=== PATIENT | male | born 1945 | race Caucasian/White ===

== ENCOUNTER 2016-12-29 16:32 | Observation (INO) | payer MEDICARE, MEDICAID ==
[2016-12-29] MEDS ORDERED: Sodium Chloride 0.9% 10 ML Syringe FLUSH PRN (17:36)
[2016-12-29] MEDS ORDERED: Sodium Chloride 0.9% 1,000 ML IV ONE (17:37)
[2016-12-29] MEDS ORDERED: Aluminum Hydroxide/Magnesium Hydroxide/Simethicone Susp 30 ML Cup PO PRN (17:40)
[2016-12-29] MEDS ORDERED: Nitroglycerin 0.4 MG Tab.SL SL PRN (17:40)
[2016-12-29] MEDS ORDERED: Acetaminophen 325 MG Tab PO PRN (17:40)
[2016-12-29] MEDS ORDERED: Bisacodyl 5 MG Tab PO PRN (17:40)
[2016-12-29] MEDS ORDERED: Sodium Chloride 0.9% 1,000 ML IV SCH (17:45)
[2016-12-29] MEDS ORDERED: Iopamidol 612 MG/ML 100 ML Bottle IVPUSH ONE (18:10)
[2016-12-29] MEDS ORDERED: Sodium Chloride 0.9% 100 ML IV SCH (18:15)
[2016-12-29] MEDS: Sodium Chloride 0.9% 1,000 ML IV SCH (19:10)
[2016-12-29] MEDS ORDERED: Divalproex Sodium 500 MG Tab.ER PO SCH (20:00)
[2016-12-29] MEDS ORDERED: Loperamide 2 MG Cap PO PRN (20:00)
[2016-12-29] MEDS ORDERED: Mirtazapine 30 MG Tab PO SCH (20:00)
[2016-12-29] MEDS ORDERED: traZODone 50 MG Tab PO SCH (20:00)
[2016-12-29] MEDS: Acetaminophen 325 MG Tab PO SCH (21:37)
[2016-12-29] MEDS: buPROPion 100 MG Tab.SR PO SCH (21:38)
[2016-12-29] MEDS: Divalproex Sodium Delayed-Release 250 MG Tab.CR PO SCH (21:38)
[2016-12-29] MEDS: Magnesium Oxide 400 MG Tab PO SCH (21:39)
[2016-12-29] MEDS: Albuterol/Ipratropium 3.0-0.5 MG/3 ML Neb Soln NEB SCH (23:19)
--- NOTE | 2016-12-30 01:15 | HP ---
CHIEF COMPLAINT: Shortness of breath, wheezing, and nonproductive cough. HISTORY OF PRESENT ILLNESS: This is a 71-year-old male with increasing weakness over the last several days, but last night he was more short of breath. O2 saturations were down to 85%, so he was placed on oxygen. They called his today and scheduled a clinic visit. He has had more pain, he points to the mid sternal area. has noticed that over the past few days when she touches his chest, it is also tender. His recent history is significant for his aspirin being replaced with amitriptyline from 12/14 through the 12/25. He does have a history of coronary artery disease. He has no history of ulcers or GI bleeding. He did have 2 dark stools today, no diarrhea. Otherwise, he has had no fever or chills. His cough is nonproductive. He has just had a lot of lethargy. PAST MEDICAL HISTORY: The patient has a past medical history of smoking, but he quit several years ago. Hyperlipidemia, peripheral vascular disease status post BKA of the right leg, essential hypertension, demand ischemia, admission in 2013. Patient and family refused further workup. Coronary artery disease with CA in 1984 and stenosis of the mid circumflex and 80% occlusion of the right RCA with no interventions. Conduct disorder followed by Psych. Seizure disorder likely due to a CVA by history. Anemia, mild, chronic, likely due to chronic disease. History of stroke with aphasia and behavioral issues since. 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 Non-pressure ulcer of the right lower extremity, healed. Contracture of the left lower leg. The patient requires a Benjamin lift. ALLERGIES: None. MEDICATIONS: List is reviewed and updated in [facility]. Most notably, for blood pressure pills, he is on Lopressor 12.5 mg b.i.d. He is on Risperdal and mirtazapine for moods and trazodone for sleep. Otherwise, multiple other medications are reviewed. SOCIAL HISTORY: The patient is . He lives at [facility] as his is unable to take care of him at home. FAMILY HISTORY: Not known. No family history was obtained from the patient. REVIEW OF SYSTEMS: General: There has been no report of major weight changes. Otherwise, all systems reviewed with family and caregiver. The patient will answer yes or no, but otherwise unable to answer questions appropriately at all times, otherwise, as stated in the HPI. PHYSICAL EXAMINATION: Vital Signs: In the clinic, blood pressure 84/33 and he was 88% on room air. The patient was transferred over to the hospital and his initial blood pressure there was 79/19, his weight was 61.2 kg, temp 97.3, pulse 67, respiratory rate 20, O2 was 100 on 2 L. General: He did not appear to be in acute distress, but he appeared pale. His skin was flushed. He was smiling and participating with the exam. His was present in the room as well and he communicated with her. Heart: Regular rate and rhythm. S1, S2 without murmur. Lungs: Sounds are clear to auscultation bilaterally without crackles or wheezes, but I could hear some audible wheezing from the upper airways when we were just conversing with him. Abdomen: Positive bowel sounds. It is soft. There is some midepigastric tenderness. Extremities: Warm and dry. He does have a right BKA, but there is no other leg edema on the left. Mental Status: He is alert, he is orientated that he can recognize his , but we did not ask about location or date. LABORATORY DATA: Otherwise, lab work performed in the clinic showed him to have a normal white count of 6.2, hemoglobin 14.2, platelets 164, glucose 110, BUN 19, creatinine 0.83, sodium 143, potassium 4.4, chloride 105, bicarb 29, calcium 9.3, albumin normal. ALT and AST normal. Lipase was normal. TSH was just done in the clinic on the and was normal at 4.26. Otherwise, chest x-ray was done, which did not show any infiltrates. ASSESSMENT: 1. Acute hypotension, could be a type of shock like obstructive shock. Given his respiratory symptoms as well with normal chest x-ray, we are going to proceed with a CT PE protocol. 2. Cough, wheezing, history of smoking, probably bronchitis versus COPD with exacerbation. The patient has no known history of COPD, but I am going to go ahead and schedule him on some DuoNeb 3 times a day and see if this helps his symptoms. 3. Fatigue and lethargy. This is almost certainly related to the medication administration of amitriptyline over 11 days, just stopped 4 days ago inadvertently. This certainly is probably what made him more tired and could even be contributing to some of his symptoms today. At this point, the medicine has already been stopped. We will go ahead and monitor him with telemetry. 4. Dark stools without anemia. He could just be mildly dehydrated. We will continue to monitor for further dark stools. We will repeat a CBC tomorrow, but a hemoglobin later. If there is any further issues with concern for melena, we will also do stool for Hemoccult. 5. History of coronary artery disease. He had a negative troponin. He and his have not wanted further aggressive workup. He would not want to be transferred to [facility]. We will repeat a troponin in the morning, but I do not see any reason to repeat it tonight. He is not having any active chest pain. We will also get an EKG. 6. Conduct disorder. Behavior seemed to be okay. We will continue his home medications. 7. History of essential hypertension. Blood pressures are low, so I am going to go ahead and hold his metoprolol. PLAN: The patient is admitted for observation. We will do a CT PE protocol. We will get an EKG. He has already received a liter of IV fluids. We will continue him on normal saline. We will repeat lab work in the morning. We will monitor for GI bleeding. Hopefully things stabilize and he can be discharged back to [facility] tomorrow. If we find an acute problem, we will treat it like a pulmonary embolism and we would likely upgrade him to acute care. He is a code level 3. I am going to hold off on DVT prophylaxis due to concern for possible GI bleeding. EILEENA: 12/29/2016 17:52:23 MODL: 12/30/2016 01:06:14 /[id number]
[2016-12-30] MEDS: Sodium Chloride 0.9% 1,000 ML IV SCH (01:34)
[2016-12-30 06:54] LABS: CHLORIDE,CL 108 mmol/L (98-107); SODIUM,NA 145 mmol/L (136-145)
[2016-12-30] MEDS: Albuterol/Ipratropium 3.0-0.5 MG/3 ML Neb Soln NEB SCH (07:21)
[2016-12-30] MEDS ORDERED: Non-Formulary Medication 1 Each (Magnesium Oxide [Magnesium Oxide] 500 MG) PO SCH (08:00)
[2016-12-30] MEDS ORDERED: Sertraline 100 MG Tab PO SCH (08:00)
[2016-12-30] MEDS ORDERED: Loratadine 10 MG Tab PO SCH (08:00)
[2016-12-30] MEDS ORDERED: risperiDONE 1 MG Tab PO SCH (08:00)
[2016-12-30] MEDS ORDERED: Docusate Sodium 100 MG Cap PO SCH (08:00)
[2016-12-30] MEDS ORDERED: Potassium Chloride 20 MEQ Tab.ER PO ONE (08:08)
[2016-12-30] MEDS ORDERED: predniSONE 20 MG Tab PO SCH (08:42)
[2016-12-30] MEDS ORDERED: Doxycycline 100 MG Cap PO SCH (08:45)
[2016-12-30] MEDS: Magnesium Oxide 400 MG Tab PO SCH (09:09)
[2016-12-30] MEDS: Divalproex Sodium Delayed-Release 250 MG Tab.CR PO SCH (09:10)
[2016-12-30] MEDS: Acetaminophen 325 MG Tab PO SCH (09:11)
[2016-12-30] MEDS ORDERED: buPROPion 100 MG Tab.SR PO SCH (09:15)
[2016-12-30] MEDS: buPROPion 100 MG Tab.SR PO SCH (09:16)
[2016-12-30 11:24] VITALS: BP 88/64
--- NOTE | 2016-12-31 08:06 | DISCH ---
PRIMARY DISCHARGE DIAGNOSES: 1. Fatigue and lethargy with recent inadvertent administration of amitriptyline 25 mg daily for 10 to 11 days. 2. Acute hypotension with significant blood pressure difference between the right and left arms, probably due to peripheral vascular disease. Blood pressures improved with IV fluids. Ruled out for obstructive shock with negative CT/PE protocol. 3. Cough, wheezing, and history of smoking with acute bronchitis, likely from underlying chronic obstructive pulmonary disease with exacerbation, improved with nebs, prednisone, and doxycycline. 4. Dark stools reported, but no further stools on admission to test for blood. Hemoglobin did drop from 14 to 12.3, but that was likely due to hemodilution. He does have a history of chronic anemia. 5. History of coronary artery disease without chest pain. Troponins were negative. He did have some midepigastric pain, but it resolved prior to discharge. 6. Conduct disorder by history with dementia with behavioral disturbance. 7. Remote history of stroke. 8. Essential hypertension. Metoprolol held due to lower blood pressures. 9. Episodes of artifact on telemetry, narrow-base tachycardia, no wide-based PVCs noted. Usually, he was having more tremors when this occurred. EKG did not catch any SVT or atrial fibrillation, so no further medications were started for that. 10.Peripheral vascular disease with previous below-knee amputation. 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 12.Contracture of the left leg requiring Benjamin lift. 13.Hyperlipidemia. 14.History of smoking. REASON FOR ADMISSION: On the date of admission, this 71-year-old was brought to the clinic with increasing weakness and lethargy. He also had hypoxia and shortness of breath, which developed on the previous evening. His could hear him wheezing. In the clinic, he was evaluated with lab work, which all looked okay. His lipase was also normal. His chest x-ray did not show any infiltrates. He was hypoxic at 88% on room air. He underwent a CT/PE protocol, which failed to reveal any pneumonias or pulmonary embolism. He was treated empirically with nebs 3 times a day, prednisone and doxycycline for COPD exacerbation. He received 2 L of IV fluids. Overall, his blood pressures improved. He was always awake and alert despite lower blood pressure readings, but he was quite sleepy over the last couple of weeks as he had inadvertently received some amitriptyline at the [facility]. This might have led to poor oral intake, which led to some of the hypotension, but luckily he was not in any renal failure and creatinine was normal at 0.8 on discharge. Otherwise, he had no fevers, he had a normal white count, and normal troponin x2. DISCHARGE PLANS/INSTRUCTIONS: He is going back up to [facility]. He will be on DuoNeb 3 times a day to continue. We can change them to p.r.n. after he resolves. He will be on doxycycline 100 mg twice daily for another 6 days and prednisone 40 mg for another 4 days. I will see him on custodial rounds in December. No lab work will be due. Aspirin will also be restarted on discharge. We did hold his dose on admission in case he were to have GI bleeding. No DVT prophylaxis was given. His stay was under 24 hours. DISCHARGE PHYSICAL EXAMINATION: Vital Signs: Temperature 98.7, pulse 91, blood pressure 88/64 on the right and 124/82 on the left, respiratory rate 20, O2 of 95% on room air on discharge. General: He is in no acute distress. Heart: Regular rate and rhythm. S1, S2 without murmur. Lungs: Sounds are clear to auscultation bilaterally without crackles or wheezes, but he did have some wheezes on exam earlier. Abdomen: Positive bowel sounds. Soft and nontender. Extremities: Warm and dry. No edema. Left leg contracture is noted. Right BKA is examined. There are no wounds. Mental Status: He is alert. He answers yes or no to questions, but it is not always clear if he answers questions appropriately. He was slightly resistive with cares this morning. Otherwise, he had no significant behaviors during his stay. MKA: 12/30/2016 12:51:04 MODL: 12/31/2016 07:59:32 /[id number]
== END 2016-12-30 14:50 ==
LOC: VM.MS 16:32
PROVIDERS: ADMIT Internal Medicine; ATTEND Internal Medicine
DX: R53.1 Weakness (principal); R53.83 Other fatigue; I95.9 Hypotension, unspecified; R05 Cough; R06.2 Wheezing; J20.9 Acute bronchitis, unspecified; I10 Essential (primary) hypertension; I73.9 Peripheral vascular disease, unspecified; F33.9 Major depressive disorder, recurrent, unspecified; E78.5 Hyperlipidemia, unspecified; Z79.899 Other long term (current) drug therapy
CPT/HCPCS: 36415; 71275; 80048; 82962; 83735; 84484; 85025; 93005; 94640; 94760; A9270; J7030; J7040; J7050; Q9967; 96360; 96361; G0378; G0379

== ENCOUNTER 2017-01-01 13:16 | Emergency (ER) | payer MEDICARE, MEDICAID ==
--- NOTE | 2017-01-01 13:38 | EDM.PDOC ---
ED HPI GENERAL MEDICAL PROBLEM - General Chief Complaint: Respiratory Problem Stated Complaint: Advised by Dr Dang patient was coming to ER from residential for evaluation. [facility] report respiratory issues and low oxygen saturation levels Time Seen by Provider: 01/01/17 13:20 Source of Information: Reports: EMS Notes Reviewed, Family, Penitentiary Records , Provider History Limitations: Reports: Language Barrier, Other (Patient has had a stroke and is unable to communicate in a verbally meaningful way according to his . assisted with answering review of systems questions with what she has observed with her today.) - History of Present Illness INITIAL COMMENTS - FREE TEXT/NARRATIVE: Patient was just discharge from hospital on Monday after a brief hospitalization. He was started on antibiotics and nebs according to . penitentiary reported he was hypoxic and in respiratory distress so ambulance called to pick him up. EMS staff report he was alert, in no distress and )2 sat was 97% on 4 liters of oxygen. He was hypotensive with systolic of 80s so they started an IV with a fluid bolus and brought him to ER> Onset: Sudden Onset Date: 01/01/17 Duration: Hour(s): Location: Reports: Chest Improves with: Reports: None Worsens with: Reports: None Associated Symptoms: Reports: No Other Symptoms - Related Data Allergies Allergy/AdvReac Type Severity Reaction Status Date / Time No Known Drug Allergies Allergy Other Verified 01/01/17 13:38 Home Meds: Home Meds Acetaminophen [Tylenol] 650 mg PO BID 03/02/14 [History] Acetaminophen [Tylenol] 650 mg PO Q4HR PRN 03/02/14 [History] Aspirin [Halfprin] 81 mg PO DAILY 03/02/14 [History] Bisacodyl [Dulcolax] 5 mg PO DAILY PRN 03/02/14 [History] Loratadine [Claritin] 10 mg PO DAILY 03/02/14 [History] Mirtazapine [Remeron] 30 mg PO BEDTIME 03/02/14 [History] Nitroglycerin [Nitrostat] 0.4 mg SL ASDIRECTED PRN 03/02/14 [History] Pravastatin [Pravachol] 10 mg PO BEDTIME 03/02/14 [History] Sertraline [Zoloft] 100 mg PO DAILY 03/02/14 [History] risperiDONE [Risperdal] 1 mg PO DAILY 03/02/14 [History] Alum Hydrox/Mag Hydrox/Simeth [Mag-Al Plus] 30 ml PO Q4H PRN 12/29/16 [History] Bisacodyl 10 mg RC DAILY PRN 12/29/16 [History] Divalproex Sodium [Depakote] 500 mg PO BID 12/29/16 [History] Docusate Sodium [Colace] 100 mg PO DAILY 12/29/16 [History] Hydrocortisone [Hydrocortisone 1% Crm] 1 applic TOP Q12H PRN 12/29/16 [History] Loperamide HCl/Simethicone [Imodium Multi-Symptom Rel Cplt] 1 each PO ASDIRECTED PRN 12/29/16 [History] Magnesium Oxide 500 mg PO BID 12/29/16 [History] Metoprolol Tartrate [Lopressor] 12.5 mg PO DAILY 12/29/16 [History] Nystatin 15 gm TP Q12H PRN 12/29/16 [History] Potassium Chloride 8 meq PO DAILY 12/29/16 [History] traZODone HCl [Trazodone HCl] 12.5 mg PO BEDTIME 12/29/16 [History] Albuterol/Ipratropium [DuoNeb 3.0-0.5 MG/3 ML] 3 ml NEB Q8HRRT #90 neb 12/30/16 [Rx] Doxycycline Calcium [IMW: Doxycycline] 100 mg PO BID #12 capsule 12/30/16 [Rx] Prednisone [IJD: predniSONE] 40 mg PO WITHBREAKFAST #8 tablet 12/30/16 [Rx] buPROPion [Wellbutrin SR] 100 mg PO BID 12/30/16 [History] Past Medical History HEENT History: Reports: Allergic Rhinitis Cardiovascular History: Reports: CAD, High Cholesterol, PVD, Other (See Below) Other Cardiovascular History: Cerebral Infarction due to unspecified occulsion or stenosis of unspecified cerebral arterty. Gastrointestinal History: Reports: Chronic Constipation, GERD Neurological History: Reports: Seizure, Other (See Below) Other Neuro History: aphasia, patient's non-compliance with other medical treatment and regimen. Psychiatric History: Reports: Anxiety, Dementia, Depression Hematologic History: Reports: Anemia Social & Family History - Tobacco Use Smoking Status *Q: Former Smoker Years of Tobacco use: 53 Used Tobacco, but Quit: Yes Month Tobacco Last Used: ? - Alcohol Use Days Per Week of Alcohol Use: 0 - Recreational Drug Use Recreational Drug Use: No ED ROS GENERAL - Review of Systems Review Of Systems: See Below Constitutional: Reports: No Symptoms. Denies: Fever, Chills HEENT: Reports: No Symptoms Respiratory: Reports: Shortness of Breath Cardiovascular: Reports: No Symptoms Endocrine: Reports: No Symptoms GI/Abdominal: Reports: No Symptoms. Denies: Black Stool, Bloody Stool, Diarrhea , Hematemesis, Hematochezia, Nausea, Vomiting : Reports: No Symptoms Musculoskeletal: Reports: No Symptoms Skin: Reports: No Symptoms Neurological: Reports: Pre-Existing Deficit (had had a stroke, ) Psychiatric: Reports: No Symptoms Hematologic/Lymphatic: Reports: No Symptoms Immunologic: Reports: No Symptoms ED EXAM, GENERAL - Physical Exam Exam: See Below Exam Limited By: Other (unable to communicate in a meaningful fashiio due to previous CVA. States yes and no to answer questions but doubt patient understands all questions.) General Appearance: Alert, WD/WN, No Apparent Distress Eye Exam: Bilateral Eye: EOMI, PERRL Ears: Normal External Exam, Normal Canal, Normal TMs Nose: Normal Inspection, Normal Mucosa, No Blood Throat/Mouth: Normal Inspection, Normal Lips, Normal Oropharynx Head: Atraumatic, Normocephalic Neck: Normal Inspection, Supple, Non-Tender Respiratory/Chest: No Respiratory Distress, Chest Non-Tender, Decreased Breath Sounds, Other (lungs clear anteriorly but very diminshed posteriorly as patient will not take deep breath). No: No Accessory Muscle Use, Respiratory Distress, Crackles, Rales, Rhonchi, Wheezing Cardiovascular: Regular Rate, Rhythm, No Edema, No JVD, No Murmur, No Rub Peripheral Pulses: 3+: Radial (L), Radial (R) GI/Abdominal: Normal Bowel Sounds, Non-Tender, No Organomegaly, No Distention (Male) Exam: Deferred Rectal (Males) Exam: Deferred Back Exam: Normal Inspection, Full Range of Motion Extremities: No Pedal Edema (right BKA, full flexion left lower extremity question some contracture) Neurological: Alert, Other (unable to ambulate) Psychiatric: Normal Affect, Normal Mood Skin Exam: Warm, Intact Lymphatic: No Adenopathy Course - Vital Signs Last Recorded V/S: Last Vital Signs Temp 36.4 C 01/01/17 13:20 Pulse 73 01/01/17 15:00 Resp 16 01/01/17 15:00 BP 81/52 L 01/01/17 15:00 Pulse Ox 94 L 01/01/17 15:00 - Orders/Labs/Meds Orders: Active Orders 24 hr Category Date Time Status Oxygen Therapy, ED [RC] ASDIRECTED Care 01/01/17 13:16 Active CXR [Chest 1V Frontal] [CR] Stat Exams 01/01/17 13:36 Taken Labs: Laboratory Tests 01/01/17 01/01/17 01/01/17 Range/Units 13:50 13:50 14:09 WBC 7.5 (4.0-10.0) x10^3/uL RBC 4.10 L (4.5-6.0) x10^6/uL Hgb 12.8 L (14.0-18.0) g/dL Hct 38.4 L (40.0-52.0) % MCV 93.7 H (78.0-93.0) fL MCH 31.2 (26.0-32.0) pg MCHC 33.3 (32.0-36.0) g/dL RDW Coeff of [place] 13.5 (10.0-15.0) % Plt Count 170 (130-400) x10^3/uL Neut % (Auto) 82.1 H (50.0-80.0) % Lymph % (Auto) 9.7 L (25.0-50.0) % [place] % (Auto) 7.6 (2.0-11.0) % Eos % (Auto) 0.5 (0.0-4.0) % Baso % (Auto) 0.1 L (0.2-1.2) % Sodium 143 (136-145) mmol/L Potassium 4.0 (3.5-5.1) mmol/L Chloride 107 (98-107) mmol/L Carbon Dioxide 28 (21-32) mmol/L BUN 18 (7-18) mg/dL Creatinine 0.9 (0.70-1.30) mg/dL Est Cr Clr Drug Dosing TNP Estimated GFR (MDRD) > 60 Glucose 107 H (74-106) mg/dL Calcium 8.1 L (8.5-10.1) mg/dL Corrected Calcium 8.98 (8.5-10.1) mg/dL Total Bilirubin 0.3 (0.2-1.0) mg/dL AST 25 (15-37) U/L ALT 25 (16-63) U/L Alkaline Phosphatase 62 (46-116) U/L Total Protein 6.4 (6.4-8.2) g/dL Albumin 2.9 L (3.4-5.0) g/dL Globulin 3.5 Albumin/Globulin Ratio 0.83 Urine Color Yellow (YELLOW) Urine Appearance Clear (CLEAR) Urine pH 7.0 (5.0-8.0) Ur Specific [place] 1.020 Urine Protein Negative (NEGATIVE) mg/dL Urine Glucose (UA) Negative (NEGATIVE) mg/dL Urine Ketones Negative (NEGATIVE) mg/dL Urine Occult Blood Negative (NEGATIVE) Urine Nitrite Negative (NEGATIVE) Urine Bilirubin Negative (NEGATIVE) Urine Urobilinogen 0.2 (0.2) EU/dL Ur Leukocyte Esterase Negative (NEGATIVE) Urine RBC 0-5 (NOT SEEN) /HPF Urine WBC 0-5 (NOT SEEN) /HPF Ur Squamous Epith Cells Not seen (NEGATIVE) /HPF Urine Bacteria Few H (NEGATIVE) /HPF Urine Mucus Rare H (NEGATIVE) /LPF - Re-Assessments/Exams Free Text/Narrative Re-Assessment/Exam: 01/01/17 16:05 Patient seen and examined, labs and diagnostics done. Patient was not acute appearing when he arrived to ER. Given 500 cc of NS started by ambulance crew and placed on monitor. Did not appear to be in respiraotry distress at any time. Was alert throughout stay in ER. Nursing discontinued oxygen and sats stayed in the 93-95 range on room air. CXR read by radiology as no acute findings. BP stayed in the 78 to 95 range systolic while in ER. Case discussed with Dr Dang after diagnostics done and she advised to send patient back to [place] and [place] met[place]. Nurses there will check blood pressure BID and fax results to Dr Dang in a week. Patient is already on Doxycycline and prednisone from hospital stay here last week. He is being transferred back to the residential via ambulance in stable condition. Departure - Departure Time of Disposition: 15:30 Disposition: DC/Tfer to [facility] Condition: Good Clinical Impression: Hypoxemia Hypotension Qualifiers: Hypotension type: unspecified hypotension type Qualified Code(s): I95.9 - Hypotension, unspecified - Discharge Information Referrals: Stephanie Dang DO [Primary Care Provider] - Additional Instructions: DC metoprolol due to low blood pressures. Takes blood pressures twice daily for one week and fax report to Dr Dang - My Orders Last 24 Hours: My Active Orders 01/01/17 13:16 Oxygen Therapy, ED [RC] ASDIRECTED 01/01/17 13:36 CXR [Chest 1V Frontal] [CR] Stat - Assessment/Plan Last 24 Hours: My Active Orders 01/01/17 13:16 Oxygen Therapy, ED [RC] ASDIRECTED 01/01/17 13:36 CXR [Chest 1V Frontal] [CR] Stat
[2017-01-01 14:27] LABS: CHLORIDE,CL 107 mmol/L (98-107); SODIUM,NA 143 mmol/L (136-145)
[2017-01-01 15:12] VITALS: BP 81/52
== END 2017-01-01 15:25 ==
LOC: VM.ED 13:16
DX: R09.02 Hypoxemia (principal); I95.9 Hypotension, unspecified; I25.10 Atherosclerotic heart disease of native coronary artery without angina pectoris; I73.9 Peripheral vascular disease, unspecified; E78.00 Pure hypercholesterolemia, unspecified; K21.9 Gastro-esophageal reflux disease without esophagitis; F41.9 Anxiety disorder, unspecified; F32.9 Major depressive disorder, single episode, unspecified; F03.90 Unspecified dementia, unspecified severity, without behavioral disturbance, psychotic disturbance, mood disturbance, and anxiety; Z87.891 Personal history of nicotine dependence; Z79.82 Long term (current) use of aspirin; Z79.899 Other long term (current) drug therapy; Z86.73 Personal history of transient ischemic attack (TIA), and cerebral infarction without residual deficits
CPT/HCPCS: 36415; 71010; 80053; 81001; 85025; 99285; 99285-GF

== ENCOUNTER 2017-01-28 11:21 | Emergency (ER) | payer MEDICARE, MEDICAID ==
--- NOTE | 2017-01-28 11:44 | EDM.PDOC ---
ED HPI GENERAL MEDICAL PROBLEM - General Chief Complaint: Respiratory Problem Stated Complaint: FOOD ASPIRATION Time Seen by Provider: 01/28/17 11:30 Source of Information: Reports: Patient, EMS - History of Present Illness INITIAL COMMENTS - FREE TEXT/NARRATIVE: Pt was eating lunch and began having difficulty breathing and coughing. Staff on sight believe he was choking on lasagna. They did not have to do the and rescue measures but did need to supply with O2. Onset: Sudden Quality: Reports: Other Improves with: Reports: Other Associated Symptoms: Reports: No Other Symptoms Treatments [employer]: Reports: IV/IO, Oxygen - Related Data Allergies Allergy/AdvReac Type Severity Reaction Status Date / Time No Known Allergies Allergy Verified 01/28/17 11:36 ED ROS GENERAL - Review of Systems Review Of Systems: See Below Constitutional: Reports: No Symptoms HEENT: Reports: No Symptoms Respiratory: Reports: Shortness of Breath Cardiovascular: Reports: No Symptoms GI/Abdominal: Reports: No Symptoms Musculoskeletal: Reports: No Symptoms Skin: Reports: No Symptoms Neurological: Reports: No Symptoms Psychiatric: Reports: No Symptoms Immunologic: Reports: No Symptoms ED EXAM, GENERAL - Physical Exam Exam: See Below Exam Limited By: Language Barrier (pt has limited communication skills) General Appearance: Alert, No Apparent Distress Head: Atraumatic, Normocephalic Neck: Normal Inspection, Supple Respiratory/Chest: Decreased Breath Sounds, Crackles, Rhonchi, Other (coughing) . No: Normal Breath Sounds, No Accessory Muscle Use, Accessory Muscle Use Cardiovascular: Normal Peripheral Pulses, Regular Rate, Rhythm, No Edema GI/Abdominal: Normal Bowel Sounds, Soft, Non-Tender, No Distention Back Exam: Normal Inspection, Full Range of Motion Extremities: Normal Inspection, Normal Range of Motion, Non-Tender, No Pedal Edema Skin Exam: Warm, Dry, Intact, Normal Color Course - Vital Signs Last Recorded V/S: Last Vital Signs Temp 37.5 C 01/28/17 11:37 Pulse 87 01/28/17 12:44 Resp 24 H 01/28/17 12:44 BP 108/76 01/28/17 12:44 Pulse Ox 100 01/28/17 12:44 - Orders/Labs/Meds Orders: Active Orders 24 hr Category Date Time Status Chest 1V Frontal [CR] Stat Exams 01/28/17 11:34 Taken Labs: Laboratory Tests 0701/28/17 01/28/17 Range/Units 11:45 11:45 12:19 WBC 6.0 (4.0-10.0) x10^3/uL RBC 4.29 L (4.5-6.0) x10^6/uL Hgb 13.3 L (14.0-18.0) g/dL Hct 40.5 (40.0-52.0) % MCV 94.4 H (78.0-93.0) fL MCH 31.0 (26.0-32.0) pg MCHC 32.8 (32.0-36.0) g/dL RDW Coeff of Beulah 13.9 (10.0-15.0) % Plt Count 165 (130-400) x10^3/uL POC ABG pH 7.459 H (7.35-7.45) POC ABG pCO2 44 (35-45) mmHG POC ABG pO2 100 (80-105) mmHG POC ABG HCO3 31 H (22-26) mmol/L POC ABG Total CO2 33 H (23-27) mmol/L POC ABG O2 Sat 98 (95-98) % POC ABG Base Excess 8 H (-2-3) mmol/L POC FiO2 0.28 Sodium 147 H (136-145) mmol/L Potassium 3.6 (3.5-5.1) mmol/L Chloride 110 H (98-107) mmol/L Carbon Dioxide 29 (21-32) mmol/L BUN 21 H (7-18) mg/dL Creatinine 0.9 (0.70-1.30) mg/dL Est Cr Clr Drug Dosing 64.26 mL/min Estimated GFR (MDRD) > 60 Glucose 128 H (74-106) mg/dL Calcium 8.7 (8.5-10.1) mg/dL Corrected Calcium 9.50 (8.5-10.1) mg/dL Total Bilirubin 0.3 (0.2-1.0) mg/dL AST 28 (15-37) U/L ALT 25 (16-63) U/L Alkaline Phosphatase 56 (46-116) U/L Total Protein 6.7 (6.4-8.2) g/dL Albumin 3.0 L (3.4-5.0) g/dL Globulin 3.7 Albumin/Globulin Ratio 0.81 Departure - Departure Time of Disposition: 12:45 Disposition: DC/Tfer to [facility] Condition: Fair Clinical Impression: Dysphagia Qualifiers: Dysphagia type: unspecified Qualified Code(s): R13.10 - Dysphagia, unspecified Choking due to food (regurgitated) Qualifiers: Encounter type: initial encounter Qualified Code(s): T17.320A - Food in larynx causing asphyxiation, initial encounter - Discharge Information Instructions: Shortness of Breath, [id number], Dysphagia Referrals: Stephanie Dang DO [Primary Care Provider] - 2 Days Forms: ED Department Discharge Additional Instructions: Please have patients bed elevated to help clear secretions. Also recommendation for further evaluation and management of aspiration-swronaldo eval. - My Orders Last 24 Hours: My Active Orders 01/28/17 11:34 Chest 1V Frontal [CR] Stat - Assessment/Plan Last 24 Hours: My Active Orders 01/28/17 11:34 Chest 1V Frontal [CR] Stat
[2017-01-28 12:28] LABS: CHLORIDE,CL 110 mmol/L (98-107); SODIUM,NA 147 mmol/L (136-145)
[2017-01-28 12:44] VITALS: BP 108/76
== END 2017-01-28 13:44 ==
LOC: VM.ED 11:21 → MERGE 11:21 → VM.ED 13:44
DX: T17.320A Food in larynx causing asphyxiation, initial encounter (principal); R13.10 Dysphagia, unspecified
CPT/HCPCS: 36415; 36600; 71010; 80053; 82803; 85027; 99284; 99284-GF

== ENCOUNTER 2018-08-14 17:35 | Emergency (ER) | payer MEDICARE, MEDICAID ==
[2018-08-14] MEDS ORDERED: Sodium Chloride 0.9% 10 ML Syringe FLUSH PRN (17:53)
[2018-08-14] MEDS ORDERED: Piperacillin/Tazobactam 3.375 GM in Sodium Chloride 0.9% 100 ML IV ONE (17:55)
[2018-08-14] MEDS ORDERED: methylPREDNISolone Sodium Succinate 125 MG/2 ML SDV IV ONE (17:56)
[2018-08-14] MEDS ORDERED: Albuterol/Ipratropium 3.0-0.5 MG/3 ML Neb Soln NEB ONE (17:56)
[2018-08-14] MEDS ORDERED: Sodium Chloride 0.9% 1,000 ML IV ONE (17:56)
--- NOTE | 2018-08-14 18:25 | CR ---
[id number] RAD/RAD Chest PA or AP 1V EXAM: FRONTAL CHEST INDICATION: Hypoxemia. COMPARISON: June 10, 2017. DISCUSSION: Stable elevation left hemidiaphragm. Mild left base scarring or atelectasis is unchanged. No acute infiltrates are identified. Normal heart size. Tortuous thoracic aorta. Surgical clips overlie the left neck. Chronic healed left rib fractures are unchanged. IMPRESSION: 1. No acute findings. Devon Kimbrough MD 08/14/18 [id number] Thank you for allowing us to participate in the care of your patient.
[2018-08-14] MEDS ORDERED: Acetaminophen 500 MG Tab PO ONE (18:55)
[2018-08-14 18:57] LABS: CHLORIDE,CL 105 mmol/L (98-107); SODIUM,NA 143 mmol/L (136-145)
[2018-08-14] MEDS ORDERED: Acetaminophen 650 MG Supp RECTAL ONE (18:59)
[2018-08-14] MEDS ORDERED: Albuterol 0.083% 2.5 MG/3 ML Neb Soln NEB ONE (19:20)
[2018-08-14 19:37] VITALS: BP 97/56
--- NOTE | 2018-08-14 19:44 | EDM.PDOC ---
ED HPI GENERAL MEDICAL PROBLEM - General Chief Complaint: Respiratory Problem Time Seen by Provider: 08/14/18 17:35 Source of Information: Reports: Patient History Limitations: Reports: Respiratory Distress - History of Present Illness INITIAL COMMENTS - FREE TEXT/NARRATIVE: Pt. presents to ER with acute onset respiratory distress/failure that started earlier in the day. Has had increased cough, fever, and increased work of breathing throughout the day. 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 He has expressive aphasia and answers yes and no to questions. Daughter relates that the patient is a code 2, no intubation or resuscitation. EMS was summoned to transport the patient to ER. [facility]2 sat [facility] the [facility]. Pt. has a history of aspiration pneumonia in the past. Onset: Today Onset Date: 08/14/18 Location: Reports: Chest, Generalized Associated Symptoms: Reports: Cough, Fever/Chills - Related Data Allergies Allergy/AdvReac Type Severity Reaction Status Date / Time No Known Drug Allergies Allergy Other Verified 08/14/18 18:40 Home Meds: Home Meds Acetaminophen [Tylenol] 650 mg PO BID 03/02/14 [History] Acetaminophen [Tylenol] 650 mg PO Q4HR PRN 03/02/14 [History] Aspirin [Halfprin] 81 mg PO DAILY 03/02/14 [History] Bisacodyl [Dulcolax] 5 mg PO DAILY PRN 03/02/14 [History] Nitroglycerin [Nitrostat] 0.4 mg SL ASDIRECTED PRN 03/02/14 [History] Pravastatin [Pravachol] 10 mg PO BEDTIME 03/02/14 [History] risperiDONE [Risperdal] 1 mg PO DAILY 03/02/14 [History] Bisacodyl 10 mg RC DAILY PRN 12/29/16 [History] Divalproex Sodium [Depakote] 500 mg PO BID 12/29/16 [History] Docusate Sodium [Colace] 200 mg PO DAILY 12/29/16 [History] Magnesium Oxide 500 mg PO BID 12/29/16 [History] Nystatin 1 applic TOP Q12H PRN 12/29/16 [History] Potassium Chloride 8 meq PO DAILY 12/29/16 [History] buPROPion [Wellbutrin SR] 100 mg PO BID 12/30/16 [History] Polyethylene Glycol 3350 [MiraLAX] 17 gram PO DAILY 06/07/17 [History] Loratadine [Claritin] 10 mg PO DAILY 08/14/18 [History] Mirtazapine [Remeron] 30 mg PO DAILY 08/14/18 [History] guaiFENesin/Dextromethorphan [Tussin Dm Liquid] 10 ml PO ASDIRECTED PRN [History] Past Medical History HEENT History: Reports: Allergic Rhinitis Cardiovascular History: Reports: CAD, High Cholesterol, Other (See Below), PVD Other Cardiovascular History: Cerebral Infarction due to unspecified occulsion or stenosis of unspecified cerebral arterty. Respiratory History: Reports: COPD Gastrointestinal History: Reports: Chronic Constipation, GERD Musculoskeletal History: Reports: Amputation, Other (See Below) Other Musculoskeletal History: muscle weakness Neurological History: Reports: Other (See Below), Seizure Other Neuro History: aphasia, patient's non-compliance with other medical treatment and regimen. Psychiatric History: Reports: Anxiety, Dementia, Depression Other Psychiatric History: personality disorder Hematologic History: Reports: Anemia Social & Family History - Family History Family Medical History: Noncontributory - Tobacco Use Smoking Status *Q: Unknown Ever Smoked - Caffeine Use Caffeine Use: Reports: Coffee - Recreational Drug Use Recreational Drug Use: No ED ROS GENERAL - Review of Systems Review Of Systems: See Below Constitutional: Reports: Fever, Chills, Fatigue HEENT: Reports: No Symptoms Respiratory: Reports: Shortness of Breath, Wheezing, Cough, Sputum Cardiovascular: Reports: No Symptoms Endocrine: Reports: No Symptoms GI/Abdominal: Reports: No Symptoms : Reports: No Symptoms Musculoskeletal: Reports: No Symptoms Skin: Reports: No Symptoms Neurological: Reports: No Symptoms Psychiatric: Reports: No Symptoms Hematologic/Lymphatic: Reports: No Symptoms Immunologic: Reports: No Symptoms Free Text/Narrative/Comment: Unknown how accurate his ROS is with his underlying dementia. ED EXAM, GENERAL - Physical Exam Exam: See Below Exam Limited By: No Limitations General Appearance: Alert, WD/WN, Moderate Distress Nose: Normal Inspection, Normal Mucosa, No Blood Throat/Mouth: Normal Inspection, Other (dentures, oral mucosa dry) Head: Atraumatic, Normocephalic Neck: Normal Inspection, Supple Respiratory/Chest: Decreased Breath Sounds, Crackles, Rhonchi, Wheezing Cardiovascular: Normal Peripheral Pulses, Tachycardia, Other (Regular rhythm, tachycardic) Peripheral Pulses: 3+: Radial (R) GI/Abdominal: Normal Bowel Sounds, Soft, Non-Tender, No Organomegaly, No Distention, Other (slender, cachectic) (Male) Exam: Deferred Rectal (Males) Exam: Deferred Back Exam: Normal Inspection Extremities: Other (R BKA, 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 mildly confused, with underlying dementia.) Skin Exam: Dry, Cool, Pallor Course - Vital Signs Last Recorded V/S: Last Vital Signs Temp 37.2 C 08/14/18 19:08 Pulse 135 H 08/14/18 19:36 Resp 34 H 08/14/18 19:36 BP 97/56 L 08/14/18 19:36 Pulse Ox 94 L 08/14/18 18:30 - Orders/Labs/Meds Orders: Active Orders 24 hr Category Date Time Status Cardiac Monitoring [RC] CONTINUOUS Care 08/14/18 17:53 Active EKG Documentation Completion [RC] STAT Care 08/14/18 17:54 Active Oxygen Therapy [RC] PRN Care 08/14/18 17:53 Active RT Aerosol Therapy [RC] ASDIRECTED Care 08/14/18 17:56 Active RT Aerosol Therapy [RC] ASDIRECTED Care 08/14/18 19:20 Active CULTURE BLOOD [BC] Stat Lab 08/14/18 18:09 Results CULTURE BLOOD [BC] Stat Lab 08/14/18 18:15 Received Lactated Ringers [Ringers, Lactated] 1,000 ml Med 08/14/18 19:45 Ordered IV ASDIRECTED Sodium Chloride 0.9% [Saline Flush] Med 08/14/18 17:53 Active 10 ml FLUSH ASDIRECTED PRN Blood Culture x2 Reflex Set [OM.PC] Stat Oth 08/14/18 17:57 Ordered Peripheral IV Insertion Adult [OM.PC] Routine Oth 08/14/18 17:54 Ordered Medication Orders Lactated Ringer's (Ringers, Lactated) 1,000 mls @ 1,000 mls/hr IV ASDIRECTED TIMA Sodium Chloride (Saline Flush) 10 ml FLUSH ASDIRECTED PRN PRN Reason: Keep Vein Open Labs: Laboratory Tests 08/14/18 08/14/18 08/14/18 Range/Units 18:09 18:09 18:09 WBC 12.1 H (4.0-10.0) x10^3/uL RBC 4.79 (4.5-6.0) x10^6/uL Hgb 14.8 D (14.0-18.0) g/dL Hct 45.1 (40.0-52.0) % MCV 94.2 H (78.0-93.0) fL MCH 30.9 (26.0-32.0) pg MCHC 32.8 (32.0-36.0) g/dL RDW Coeff of Beulah 14.0 (10.0-15.0) % Plt Count 180 (130-400) x10^3/uL Add Manual Diff Yes Neutrophils % (Manual) 77 (50-80) % Band Neutrophils % 2 (0-6) % Lymphocytes % (Manual) 10 L (25-50) % Monocytes % (Manual) 11 (2-11) % Platelet Estimate Adequate PT 12.4 H (9.6-11.4) SEC INR 1.2 L (2.0-3.5) Sodium 143 (136-145) mmol/L Potassium 4.0 (3.5-5.1) mmol/L Chloride 105 (98-107) mmol/L Carbon Dioxide 25 (21-32) mmol/L Anion Gap 17.0 (10-20) mmol/L BUN 15 (7-18) mg/dL Creatinine 0.8 (0.70-1.30) mg/dL Est Cr Clr Drug Dosing TNP Estimated GFR (MDRD) > 60 Glucose 195 H (74-106) mg/dL Lactic Acid (0.4-2.0) mmol/L Calcium 8.8 (8.5-10.1) mg/dL Corrected Calcium 9.60 (8.5-10.1) mg/dL Phosphorus 3.3 (2.6-4.7) mg/dL Magnesium 1.8 (1.8-2.4) mg/dL Total Bilirubin 0.5 (0.2-1.0) mg/dL AST 19 (15-37) U/L ALT 20 (16-63) U/L Alkaline Phosphatase 79 (46-116) U/L Troponin I 0.345 H* (<=0.056) ng/mL C-Reactive Protein 8.3 H (<=0.9) mg/dL NT-Pro-B Natriuret Pep 594 H (<=125) pg/mL Total Protein 7.2 (6.4-8.2) g/dL Albumin 3.0 L (3.4-5.0) g/dL Globulin 4.2 Albumin/Globulin Ratio 0.71 Urine Color (YELLOW) Urine Appearance (CLEAR) Urine pH (5.0-8.0) Ur Specific [place] Urine Protein (NEGATIVE) mg/dL Urine Glucose (UA) (NEGATIVE) mg/dL Urine Ketones (NEGATIVE) mg/dL Urine Occult Blood (NEGATIVE) Urine Nitrite (NEGATIVE) Urine Bilirubin (NEGATIVE) Urine Urobilinogen (0.2) EU/dL Ur Leukocyte Esterase (NEGATIVE) Urine RBC (NOT SEEN) /HPF Urine WBC (NOT SEEN) /HPF Ur Squamous Epith Cells (NEGATIVE) /HPF Urine Bacteria (NEGATIVE) /HPF Urine Mucus (NEGATIVE) /LPF 08/14/18 08/14/18 Range/Units 18:09 19:17 WBC (4.0-10.0) x10^3/uL RBC (4.5-6.0) x10^6/uL Hgb (14.0-18.0) g/dL Hct (40.0-52.0) % MCV (78.0-93.0) fL MCH (26.0-32.0) pg MCHC (32.0-36.0) g/dL RDW Coeff of Beulah (10.0-15.0) % Plt Count (130-400) x10^3/uL Add Manual Diff Neutrophils % (Manual) (50-80) % Band Neutrophils % (0-6) % Lymphocytes % (Manual) (25-50) % Monocytes % (Manual) (2-11) % Platelet Estimate PT (9.6-11.4) SEC INR (2.0-3.5) Sodium (136-145) mmol/L Potassium (3.5-5.1) mmol/L Chloride (98-107) mmol/L Carbon Dioxide (21-32) mmol/L Anion Gap (10-20) mmol/L BUN (7-18) mg/dL Creatinine (0.70-1.30) mg/dL Est Cr Clr Drug Dosing Estimated GFR (MDRD) Glucose (74-106) mg/dL Lactic Acid 2.3 H* (0.4-2.0) mmol/L Calcium (8.5-10.1) mg/dL Corrected Calcium (8.5-10.1) mg/dL Phosphorus (2.6-4.7) mg/dL Magnesium (1.8-2.4) mg/dL Total Bilirubin (0.2-1.0) mg/dL AST (15-37) U/L ALT (16-63) U/L Alkaline Phosphatase (46-116) U/L Troponin I (<=0.056) ng/mL C-Reactive Protein (<=0.9) mg/dL NT-Pro-B Natriuret Pep (<=125) pg/mL Total Protein (6.4-8.2) g/dL Albumin (3.4-5.0) g/dL Globulin Albumin/Globulin Ratio Urine Color Caron H (YELLOW) Urine Appearance Clear (CLEAR) Urine pH 6.0 (5.0-8.0) Ur Specific [place] >=1.030 Urine Protein Negative (NEGATIVE) mg/dL Urine Glucose (UA) Negative (NEGATIVE) mg/dL Urine Ketones Negative (NEGATIVE) mg/dL Urine Occult Blood Negative (NEGATIVE) Urine Nitrite Negative (NEGATIVE) Urine Bilirubin Negative (NEGATIVE) Urine Urobilinogen 0.2 (0.2) EU/dL Ur Leukocyte Esterase Negative (NEGATIVE) Urine RBC Not seen (NOT SEEN) /HPF Urine WBC Not seen (NOT SEEN) /HPF Ur Squamous Epith Cells Not seen (NEGATIVE) /HPF Urine Bacteria Not seen (NEGATIVE) /HPF Urine Mucus Not seen (NEGATIVE) /LPF Meds: Medications Generic Name Dose Route Start Last Admin Trade Name Freq PRN Reason Stop Dose Admin Lactated Ringer's 1,000 mls @ 1,000 mls/hr 08/14/18 19:45 Ringers, Lactated IV ASDIRECTED TIMA Sodium Chloride 10 ml 08/14/18 17:53 Saline Flush FLUSH ASDIRECTED PRN Keep Vein Open Discontinued Medications Generic Name Dose Route Start Last Admin Trade Name Freq PRN Reason Stop Dose Admin Acetaminophen 1,000 mg 08/14/18 18:55 Tylenol Extra Strength PO 08/14/18 18:56 ONETIME ONE Acetaminophen 650 mg 08/14/18 18:59 08/14/18 19:08 Tylenol RECTAL 08/14/18 19:00 650 mg NOW ONE Administration Albuterol 2.5 mg 08/14/18 19:20 08/14/18 19:24 Proventil Neb Soln NEB 08/14/18 19:21 2.5 mg ONETIME ONE Administration Albuterol/Ipratropium 3 ml 08/14/18 17:56 08/14/18 18:15 Duoneb 3.0-0.5 Mg/3 Ml NEB 08/14/18 17:57 3 ml ONETIME ONE Administration Piperacillin Sod/Tazobactam 100 mls @ 200 mls/hr 08/14/18 17:55 08/14/18 18: 18 Sod 3.375 gm/ Sodium Chloride IV 08/14/18 18:24 200 mls/hr STAT ONE Administration Sodium Chloride 1,000 mls @ 1,000 mls/hr 08/14/18 17:56 08/14/18 18:17 Normal Saline IV 08/14/18 18:55 1,000 mls/hr .BOLUS ONE Administration Methylprednisolone Sodium Succinate 125 mg 08/14/18 17:56 08/14/18 18:17 Solu-Medrol IV 08/14/18 17:57 125 mg ONETIME ONE Administration - Radiology Interpretation Free Text/Narrative:: R middle lobe infiltrate; Chest x-ray was read as negative by radiology. Clinically he has pneumonia - Re-Assessments/Exams Free Text/Narrative Re-Assessment/Exam: Pt. was given duoneb and albuterol nebs on arrival. IV access was obtained. Was given zosyn 3.375gm IV and solumedrol 125mg. He was given a liter of NS IV-he was tachycardic and oral mucosa was dry. Was started on a second liter ( lactated ringers) at 500ml/hr. He remained hemodynamically stable in ER. Minimal improvement in resp. status. Was started on Bipap which he is tolerating. Departure - Departure Time of Disposition: 20:01 Disposition: DC/Tfer to Acute Hospital 02 Condition: Critical Clinical Impression: Hypoxemia, Aspiration pneumonia, Respiratory failure - Discharge Information Referrals: Stephanie Dang DO [Primary Care Provider] - Forms: ED Department Discharge, Interfacility Transfer EMTALA - Problem List Review Problem List Initiated/Reviewed/Updated: Yes - My Orders Last 24 Hours: My Active Orders 08/14/18 17:53 Cardiac Monitoring [RC] CONTINUOUS Oxygen Therapy [RC] PRN Sodium Chloride 0.9% [Saline Flush] 10 ml FLUSH ASDIRECTED PRN 08/14/18 17:54 EKG Documentation Completion [RC] STAT Peripheral IV Insertion Adult [OM.PC] Routine 08/14/18 17:56 RT Aerosol Therapy [RC] ASDIRECTED 08/14/18 17:57 Blood Culture x2 Reflex Set [OM.PC] Stat 08/14/18 18:09 CULTURE BLOOD [BC] Stat 08/14/18 18:15 CULTURE BLOOD [BC] Stat 08/14/18 19:20 RT Aerosol Therapy [RC] ASDIRECTED 08/14/18 19:45 Lactated Ringers [Ringers, Lactated] 1,000 ml IV ASDIRECTED - Assessment/Plan Last 24 Hours: My Active Orders 08/14/18 17:53 Cardiac Monitoring [RC] CONTINUOUS Oxygen Therapy [RC] PRN Sodium Chloride 0.9% [Saline Flush] 10 ml FLUSH ASDIRECTED PRN 08/14/18 17:54 EKG Documentation Completion [RC] STAT Peripheral IV Insertion Adult [OM.PC] Routine 08/14/18 17:56 RT Aerosol Therapy [RC] ASDIRECTED 08/14/18 17:57 Blood Culture x2 Reflex Set [OM.PC] Stat 08/14/18 18:09 CULTURE BLOOD [BC] Stat 08/14/18 18:15 CULTURE BLOOD [BC] Stat 08/14/18 19:20 RT Aerosol Therapy [RC] ASDIRECTED 08/14/18 19:45 Lactated Ringers [Ringers, Lactated] 1,000 ml IV ASDIRECTED Plan: Discussed findings with family. They opted for the patient to be transferred to [place]. He did have a positive troponin. He does have a history of CAD and this may be due to his hypoxia or due to DORCAS, although his kidney function is normal at this time. Continue IV fluids. Continue BiPAP. Will be transported via [facility] ground ambulance.
[2018-08-14] MEDS ORDERED: Lactated Ringers 1,000 ML IV SCH (19:45)
== END 2018-08-14 21:10 | disposition short-term general hospital (02) ==
LOC: VM.ED 17:35
DX: J69.0 Pneumonitis due to inhalation of food and vomit (principal); J96.91 Respiratory failure, unspecified with hypoxia; I25.10 Atherosclerotic heart disease of native coronary artery without angina pectoris; E78.00 Pure hypercholesterolemia, unspecified; J44.9 Chronic obstructive pulmonary disease, unspecified; F41.9 Anxiety disorder, unspecified; Z79.82 Long term (current) use of aspirin; Z79.899 Other long term (current) drug therapy
CPT/HCPCS: 36415; 71045; 80053; 81001; 83605; 83735; 83880; 84100; 84484; 85025; 85610; 86140; 87040; 87804; 87804-59; 93005; 94640; 94660; 94760; 96361; 96365; 96375; 99284-GF; 99285-25; A9270-GY; J2543; J2930; J7030; J7050; J7120; J7613-GY; J7620-GY